=== PATIENT | male | born 1950 | race Caucasian/White ===

== ENCOUNTER 2023-07-09 13:08 | Emergency (ER) | payer MEDICARE, BC ==
[2023-07-09 14:38] LABS: A/G RATIO 0.8 (1.2-2.2); ALANINE AMINOTRANSFERASE,ALT 31 U/L (12-78); ALKALINE PHOSPHATASE 68 U/L (46-116); ANION GAP 9.8 mmol/L (5.0-14.0); ASPARTATE AMNIOTRANSFERASE,AST 14 U/L (15-37); BILIRUBIN TOTAL 0.5 mg/dL (0.2-1.0); BLOOD UREA NITROGEN,BUN 27 mg/dL (7-18); CALCIUM 8.7 mg/dL (8.5-10.1); CARBON DIOXIDE,CO2 28 mmol/L (21-32); CHLORIDE,CL 105 mmol/L (100-108); CREATININE 1.4 mg/dL (0.8-1.3); EST CRCL DRUG DOSING (CG) 50.05 mL/min; ESTIMATED GFR 53 mL/min (>60); GLUCOSE RANDOM 106 mg/dL (74-106); PROTEIN TOTAL,TP 6.8 g/dL (6.4-8.2); SODIUM,NA 143 mmol/L (140-148)
[2023-07-09 14:39] LABS: C-REACTIVE PROTEIN < 0.50 mg/dL (<0.50)
[2023-07-09 14:44] LABS: HEMOGLOBIN 13.3 g/dL (12.9-16.9); WHITE BLOOD CELL COUNT,WBC 9.3 K/uL (3.2-11.0)
[2023-07-09 14:45] LABS: PLATELET COUNT,PLT 218 K/uL (130-375)
[2023-07-09 14:47] LABS: LYMPHOCYTES ABSOLUTE MAN 3.07 K/uL (0.8-3.3); LYMPHOCYTES PERCENT MAN 33 % (24-44); MONOCYTES ABSOLUTE MAN 0.47 K/uL (0.20-0.90); MONOCYTES PERCENT MAN 5 % (2-6); NEUTROPHILS ABSOLUTE MAN 5.77 K/uL (1.0-7.6); SEG NEUTROPHILS PERCENT MAN 62 % (36-66)
== END 2023-07-09 16:11 | disposition home or self-care (01) ==
LOC: JP.ED 13:08
DX: M10.9 Gout, unspecified (principal); I10 Essential (primary) hypertension; E66.9 Obesity, unspecified; Z79.82 Long term (current) use of aspirin; Z79.899 Other long term (current) drug therapy; Z68.35 Body mass index [BMI] 35.0-35.9, adult
CPT/HCPCS: 36415; 73630-26-RT; 73630-RT; 80053; 84550; 85025; 86140; 93971-RT; 99284

== ENCOUNTER 2023-09-24 09:41 | Emergency (ER) | payer MEDICARE, BC ==
[2023-09-24] MEDS: Lidocaine 1% 5 ML VIAL INJECT ONE (13:16)
[2023-09-24] MEDS: Bacitracin Oint 1 GM U/D Packet TOP ONE (13:16)
== END 2023-09-24 14:06 | disposition home or self-care (01) ==
LOC: JP.ED 09:41
DX: S61.211A Laceration without foreign body of left index finger without damage to nail, initial encounter (principal); I10 Essential (primary) hypertension; E66.9 Obesity, unspecified; Z68.33 Body mass index [BMI] 33.0-33.9, adult; Z79.82 Long term (current) use of aspirin; Z79.899 Other long term (current) drug therapy; W22.8XXA Striking against or struck by other objects, initial encounter
CPT/HCPCS: 12001; 99282